=== PATIENT | male | born 1990 | race African-American/Black ===

== ENCOUNTER 2017-07-05 10:01 | Emergency (ER) | payer SELFPAY ==
[2017-07-05] MEDS ORDERED: ALBUTEROL SULFATE 0.083% NEB 2.5 MG/3 ML AMPUL NEB ONE ×2 (11:05→11:38)
--- NOTE | 2017-07-05 11:13 | ER Document Report ---
ED Respiratory Problem - General Chief Complaint: Cough Stated Complaint: COUGH Time Seen by Provider: 07/05/17 10:45 Notes: 26 yo healthy male c/o cough x 1 week. reports URI symptoms last week, but cough is lingering. + cough induced vomiting TRAVEL OUTSIDE OF THE [place] IN LAST 30 DAYS: No - HPI Patient complains to provider of: Cough Onset: Last week Duration: Intermittent episodes Quality of pain: Achy Cough: Productive Sputum amount: Scant Sputum color: Green Sputum consistency: Mucoid Associated symptoms: Congestion, Cough, Headache. denies: Fever Similar symptoms previously: No Recently seen / treated by doctor: No - Related Data Allergies/Adverse Reactions: No Known Allergies Allergy (Unverified 07/05/17 10:05) Past Medical History - General Information source: Patient - Social History Smoking Status: Current Every Day Smoker Cigarette use (# per day): Yes - 3-4 Frequency of alcohol use: None Drug Abuse: None Occupation: construction Lives with: Alone Family History: Reviewed & Not Pertinent Patient has suicidal ideation: No Patient has homicidal ideation: No Pulmonary Medical History: Reports: Hx Asthma - as a child Renal/ Medical History: Denies: Hx Peritoneal Dialysis Review of Systems - Review of Systems Constitutional: See HPI EENT: See HPI Cardiovascular: No symptoms reported Respiratory: See HPI, Cough Gastrointestinal: No symptoms reported Genitourinary: No symptoms reported Male Genitourinary: No symptoms reported Musculoskeletal: No symptoms reported Skin: No symptoms reported Hematologic/Lymphatic: No symptoms reported Neurological/Psychological: No symptoms reported Physical Exam - Vital signs Interpretation: Normal - General General appearance: Appears well, Alert - HEENT Head: Normocephalic, Atraumatic Eyes: Normal Pupils: PERRL - Respiratory Respiratory status: No respiratory distress Chest status: Nontender Breath sounds: Wheezing Chest palpation: Normal - Cardiovascular Rhythm: Regular Heart sounds: Normal auscultation Murmur: No - Abdominal Inspection: Normal Distension: No distension Bowel sounds: Normal Tenderness: Nontender Organomegaly: No organomegaly - Back Back: Normal, Nontender - Extremities General upper extremity: Normal inspection, Nontender, Normal color, Normal ROM , Normal temperature General lower extremity: Normal inspection, Nontender, Normal color, Normal ROM , Normal temperature, Normal weight bearing. No: Tomeka's sign - Neurological Neuro grossly intact: Yes Cognition: Normal Orientation: AAOx4 [place] Coma Scale Eye Opening: Spontaneous Ion Coma Scale Verbal: Oriented [place] Coma Scale Motor: Obeys Commands [place] Coma Scale Total: 15 Speech: Normal Motor strength normal: LUE, RUE, LLE, RLE Sensory: Normal - Psychological Associated symptoms: Normal affect, Normal mood - Skin Skin Temperature: Warm Skin Moisture: Dry Skin Color: Normal Course - Re-evaluation Re-evalutation: 07/05/17 11:08 pt is a healthy 26 male c/o cough x 1 week. pt reports URI s/s last week which have improved, but the cough is lingering. pt is afebrile. nontoxic Pt's wheezing improved after nebulizer. Low suspicion for acute coronary syndrome, respiratory failure, sepsis or PE. I consider discharge home reasonable. The patient and I have discussed the diagnosis and we agree with the discharge home with close follow up. We also discussed returning to the ED if new or worsening symptoms occur. We have discussed the symptoms which are most concerning. Pt will be discharged home with oral steroids, inhaled bronchodilator and cough suppressant. Pt is agreeable with plan and stable for discharge Discharge - Discharge Clinical Impression: Cough, Wheezing Condition: Stable Disposition: HOME, SELF-CARE Instructions: Bronchitis With Bronchospasm (Wheezing) ([facility]), Steroid Medication , Bronchodilators ([facility]), Cough Suppressant & Expectorant Medications Additional Instructions: You have bronchitis with wheezing Please take medications as prescribed and use inhaler as needed Return to ER any worsening Follow up with primary care if symptoms persist Prescriptions: Benzonatate [Tessalon Perles 100 mg Capsule] 200 mg PO Q8HP PRN #40 capsule PRN Reason: Albuterol Sulfate [Proair HFA Inhalation Aerosol 8.5 gm MDI] 2 puff IH Q4H PRN # 1 mdi PRN Reason: Prednisone [Deltasone 10 mg Tablet] 10 mg PO ASDIR PRN #21 tablet PRN Reason:
[2017-07-05] MEDS ORDERED: PREDNISONE 20 MG TABLET PO ONE (11:38)
[2017-07-05 12:13] VITALS: BP 112/65
== END 2017-07-05 12:13 | disposition home or self-care (01) ==
LOC: ER 10:01
DX: R05 Cough (principal); R06.2 Wheezing; R09.81 Nasal congestion; R51 Headache; F17.210 Nicotine dependence, cigarettes, uncomplicated
CPT/HCPCS: 94640 ×2; 99283; J7512